=== PATIENT | female | born 1995 | race Two or more races ===

== ENCOUNTER 2018-07-28 18:17 | Emergency (ER) | payer SELFPAY ==
[~2018-07-28] VITALS: Ht 154.9 cm; Wt 53.5 kg
[2018-07-28 18:44] LABS: BILIRUBIN,URINE NEGATIVE (NEG); CLARITY,URINE CLEAR; COLOR,URINE YELLOW; NITRITE,URINE NEGATIVE (NEG); PH,URINE 5.5; PROTEIN,URINE NEGATIVE (NEG-TRACE); UROBILINOGEN,URINE 0.2 mg/dL (0.2 mg/dL)
[2018-07-28 18:53] LABS: BACTERIA,URINE 0 /HPF (0-FEW); RBC,URINE RARE /HPF (0-2); SQUAMOUS EPITHELIAL CELL,UR OCC /LPF; WBC,URINE OCC /HPF (0-4)
--- NOTE | 2018-07-28 18:54 | PHYS DOC ---
Adult General Chief Complaint Chief Complaint: VAGINAL BLEEDING HPI HPI Patient is a 23 year old female who presents with patient states 3 days ago she began having bleeding that was like a regular period, but it has since stopped. Patient denies any vaginal discharge or worries for STDs. Patient denies any pain, nausea, vomiting, fever, diarrhea. Patient states she has not seen an FOOD STYLIST hasn't nothing scheduled. Patient states she found out a week and a half ago that she was . Her last menstrual period was May 29. (LUIS ARMANDO TROTTER APRN) Review of Systems Review of Systems Constitutional: Denies fever or chills [] Eyes: Denies change in visual acuity, redness, or eye pain [] HENT: Denies nasal congestion or sore throat [] Respiratory: Denies cough or shortness of breath [] Cardiovascular: No additional information not addressed in HPI [] GI: Denies abdominal pain, nausea, vomiting, bloody stools or diarrhea [] : Vaginal bleeding 3 days ago. Denies dysuria or hematuria [] Musculoskeletal: Denies back pain or joint pain [] Integument: Denies rash or skin lesions [] Neurologic: Denies headache, focal weakness or sensory changes [] All other systems were reviewed and found to be within normal limits, except as documented in this note. (LUIS ARMANDO TROTTER COMMUNICATIONS OFFICER) Allergies Allergies Allergies Coded Allergies Type Severity Reaction Last Updated Verified No Known Drug Allergies 07/28/18 No (PINKY JEFFERS COMMUNICATIONS OFFICER) Physical Exam Physical Exam Constitutional: Well developed, well nourished, no acute distress, non-toxic appearance. [] HENT: Normocephalic, atraumatic, bilateral external ears normal, oropharynx moist, no oral exudates, nose normal. [] Eyes: PERRLA, EOMI, conjunctiva normal, no discharge. [] Neck: Normal range of motion, no tenderness, supple, no stridor. [] Cardiovascular:Heart rate regular rhythm, no murmur [] Lungs & Thorax: Bilateral breath sounds clear to auscultation [] Abdomen: Bowel sounds normal, soft, no tenderness, no masses, no pulsatile masses. [] Skin: Warm, dry, no erythema, no rash. [] Back: No tenderness, no CVA tenderness. [] Extremities: No tenderness, no cyanosis, no clubbing, ROM intact, no edema. [] Neurologic: Alert and oriented X 3, normal motor function, normal sensory function, no focal deficits noted. [] Psychologic: Affect normal, judgement normal, mood normal. * Normal physical exam[] (LUIS ARMANDO TROTTER COMMUNICATIONS OFFICER) Current Patient Data Vital Signs Vital Signs Date Time Temp Pulse Resp B/P (MAP) Pulse Ox O2 Delivery O2 Flow Rate FiO2 07/28/18 20:14 95 16 127/84 (98) 100 Room Air 07/28/18 18:46 98.4 98.4 (PINKY JEFFERS COMMUNICATIONS OFFICER) Lab Values Laboratory Tests Test 07/28/18 18:35 07/28/18 18:36 07/28/18 19:10 Urine Color Yellow Urine Clarity Clear Urine pH 5.5 Urine Specific [place] >=1.030 Urine Protein Negative mg/dL (NEG-TRACE) Urine Glucose (UA) Negative mg/dL (NEG) Urine Ketones (Stick) Negative mg/dL (NEG) Urine Blood Negative (NEG) Urine Nitrite Negative (NEG) Urine Bilirubin Negative (NEG) Urine Urobilinogen Dipstick 0.2 mg/dL (0.2 mg/dL) Urine Leukocyte Esterase Negative (NEG) Urine RBC Rare /HPF (0-2) Urine WBC Occ /HPF (0-4) Urine Squamous Epithelial Cells Occ /LPF Urine Bacteria 0 /HPF (0-FEW) Urine Mucus Mod /LPF POC Urine HCG, Qualitative Hcg positive (Negative) White Blood Count 7.0 x10^3/uL (4.0-11.0) Red Blood Count 4.49 x10^6/uL (3.50-5.40) Hemoglobin 12.9 g/dL (12.0-15.5) Hematocrit 39.0 % (36.0-47.0) Mean Corpuscular Volume 87 fL (79-100) Mean Corpuscular Hemoglobin 29 pg (25-35) Mean Corpuscular Hemoglobin Concent 33 g/dL (31-37) Red Cell Distribution Width 13.8 % (11.5-14.5) Platelet Count 331 x10^3/uL (140-400) Neutrophils (%) (Auto) 62 % (31-73) Lymphocytes (%) (Auto) 28 % (24-48) Monocytes (%) (Auto) 7 % (0-9) Eosinophils (%) (Auto) 3 % (0-3) Basophils (%) (Auto) 0 % (0-3) Neutrophils # (Auto) 4.3 x10^3uL (1.8-7.7) Lymphocytes # (Auto) 2.0 x10^3/uL (1.0-4.8) Monocytes # (Auto) 0.5 x10^3/uL (0.0-1.1) Eosinophils # (Auto) 0.2 x10^3/uL (0.0-0.7) Basophils # (Auto) 0.0 x10^3/uL (0.0-0.2) Maternal Serum HCG Beta Subunit 58 mIU/mL (0-5) H Sodium Level 140 mmol/L (136-145) Potassium Level 4.2 mmol/L (3.5-5.1) Chloride Level 104 mmol/L (98-107) Carbon Dioxide Level 27 mmol/L (21-32) Anion Gap 9 (6-14) Blood Urea Nitrogen 15 mg/dL (7-20) Creatinine 0.7 mg/dL (0.6-1.0) Estimated GFR (Cockcroft-Gault) 102.8 Glucose Level 93 mg/dL (70-99) Calcium Level 8.8 mg/dL (8.5-10.1) Laboratory Tests 07/28/18 19:10 Laboratory Tests 07/28/18 19:10 (PINKY JEFFERS APRN) EKG EKG [] (LUIS ARMANDO TROTTER APRN) Radiology/Procedures Radiology/Procedures OB US (LUIS ARMANDO TROTTER APRN) Radiology/Procedures PROCEDURE: OB <14 WKS W/TV OB ultrasound less than 14 weeks to include transabdominal and transvaginal imaging 07/28/2018 CLINICAL HISTORY: First trimester with vaginal bleeding for 3 days. TECHNIQUE: Using the distended urinary bladder as a sonographic window, a real-time ultrasound examination of the pelvis was performed. Additionally in an attempt to better evaluate the uterus and adnexa, a transvaginal ultrasound study was performed. Multiple images were obtained. FINDINGS: The uterus is within normal limits in size. It measures 8.2 x 5.2 x 3.2 cm in longitudinal, transverse, and AP dimensions. The endometrial echo complex measures 6 mm in thickness which is within normal limits. No gestational sac is seen within the uterus. No focal abnormality of the uterus is seen. An oval-shaped structure with internal echoes is seen within the cervix which is felt to represent a complex nabothian cyst. This measures 1.9 cm in greatest diameter. Both ovaries are within normal limits in size and echogenicity. The right ovary measures 3.4 x 2.0 x 1.9 cm in size. Left ovary measures 2.8 x 2.0 x 1.8 cm in size. No free fluid is seen. IMPRESSION: 1. Negative study. No IUP is seen. 2. This ultrasound finding could be seen with a very early IUP, missed spontaneous or possibly an occult ectopic . Clinical correlation and correlation with the patient's serial beta hCG level is recommended. (PINKY JEFFERS APRN) Course & Med Decision Making Course & Med Decision Making Patient is a 23 year old female who presents with patient states 3 days ago she began having bleeding that was like a regular period, but it has since stopped. Patient denies any vaginal discharge or worries for STDs. Patient denies any pain, nausea, vomiting, fever, diarrhea. Patient states she has not seen an FOOD STYLIST hasn't nothing scheduled. Patient states she found out a week and a half ago that she was . Her last menstrual period was May 29. Alert and oriented. Speaks in full clear sentences. Mucous membranes moist. Skin is pink warm and dry. Vital signs are within normal limits. Abdomen is soft and nontender. Patient denies any renal pain, nausea, vomiting, diarrhea, vaginal discharge, bleeding, worries for STDs. Lungs Clear to auscultation all lobes. Heart rate regular without murmur. Urine positive for . Blood work unremarkable. Urinalysis shows no infection. Blood type A+. Beta serum 54. Patient has likely had a miscarriage or she is very early in . Patient needs to follow up with Dr Castorena as stated in discharge instructions. 1954: Patient reported off to Jaydon Jeffers APRN. (LUIS ARMANDO TROTTER APRN) Course & Med Decision Making 2144: Spoke with patient using the [employer] translation line and explained that a was not identified on the ultrasound. Informed pt that she needs to call Dr. Castorena's office in the morning to schedule a follow up appointment and a redraw of her HCG level in order to determine if she has had a miscarriage Pt verbalized and understanding of d/c instructions and were in agreement with POC , follow up, and return to ED instructions. (PINKY JEFFERS APRN) Dragon Disclaimer Dragon Disclaimer This electronic medical record was generated, in whole or in part, using a voice recognition dictation system. (LUIS ARMANDO TROTTER APRN) Departure Departure Impression: Primary Impression: Vaginal bleeding affecting early Additional Impression: Threatened miscarriage Disposition: HOME, SELF-CARE Condition: STABLE Referrals: NO PCP (PCP) SUPRIYA CASTORENA Jr, MD Patient Instructions: Threatened Miscarriage, Vaginal Bleeding During , [id number] Additional Instructions: Follow up with Dr Castorena as soon as possible. Problem Qualifiers LUIS ARMANDO TROTTER APRN Jul 28, 2018 18:54 PINKY JEFFERS APRN Jul 28, 2018 21:32
[2018-07-28 19:26] LABS: BASO % 0 % (0-3); EOS # 0.2 x10^3/uL (0.0-0.7); EOS % 3 % (0-3); HEMOGLOBIN 12.9 g/dL (12.0-15.5); LYMPH % 28 % (24-48); MEAN CORPUSCULAR HEMOGLOBIN 29 pg (25-35); MEAN CORPUSCULAR HGB CONC 33 g/dL (31-37); MEAN CORPUSCULAR VOLUME 87 fL (79-100); MONO # 0.5 x10^3/uL (0.0-1.1); MONO % 7 % (0-9); NEUT # 4.3 x10^3uL (1.8-7.7); NEUT % 62 % (31-73); PLATELET COUNT 331 x10^3/uL (140-400); RED BLOOD COUNT 4.49 x10^6/uL (3.50-5.40); RED CELL DISTRIBUTION WIDTH 13.8 % (11.5-14.5)
[2018-07-28 19:34] LABS: CALCIUM 8.8 mg/dL (8.5-10.1); CREATININE 0.7 mg/dL (0.6-1.0); GFR 102.8; POTASSIUM 4.2 mmol/L (3.5-5.1)
--- NOTE | 2018-07-28 21:23 | RAD ---
OB ultrasound less than 14 weeks to include transabdominal and transvaginal imaging 07/28/2018 CLINICAL HISTORY: First trimester with vaginal bleeding for 3 days. TECHNIQUE: Using the distended urinary bladder as a sonographic window, a real-time ultrasound examination of the pelvis was performed. Additionally in an attempt to better evaluate the uterus and adnexa, a transvaginal ultrasound study was performed. Multiple images were obtained. FINDINGS: The uterus is within normal limits in size. It measures 8.2 x 5.2 x 3.2 cm in longitudinal, transverse, and AP dimensions. The endometrial echo complex measures 6 mm in thickness which is within normal limits. No gestational sac is seen within the uterus. No focal abnormality of the uterus is seen. An oval-shaped structure with internal echoes is seen within the cervix which is felt to represent a complex nabothian cyst. This measures 1.9 cm in greatest diameter. Both ovaries are within normal limits in size and echogenicity. The right ovary measures 3.4 x 2.0 x 1.9 cm in size. Left ovary measures 2.8 x 2.0 x 1.8 cm in size. No free fluid is seen. IMPRESSION: 1. Negative study. No IUP is seen. 2. This ultrasound finding could be seen with a very early IUP, missed spontaneous or possibly an occult ectopic . Clinical correlation and correlation with the patient's serial beta hCG level is recommended. Electronically signed by: Josh Little MD (07/28/2018 9:20 PM) [facility]
[2018-07-28 22:14] VITALS: BP 114/66
== END 2018-07-28 22:15 | disposition home or self-care (01) ==
LOC: ER 18:17
DX: O20.0 Threatened abortion (principal); Z3A.08 8 weeks gestation of pregnancy
CPT/HCPCS: 36415; 76801; 76817; 80048; 81001; 81025; 84702; 85025; 86850; 86900; 86901; 99284-25